=== PATIENT | female | born 1950 | race Native Hawaiian/Other Pacific Islander ===

== ENCOUNTER 2020-08-09 11:00 | Day surgery (SDC) | payer OTHER, MEDICARE ==
[2020-08-07 09:26] LABS: PLATELET COUNT 218 K/uL (152-353)
[2020-08-07 09:37] LABS: POTASSIUM 4.1 mmol/L (3.6-5.2)
== END 2020-08-10 15:28 | disposition home or self-care (01) ==
LOC: OR 11:00
PROVIDERS: ATTEND Internal Medicine Gastroenterology
PROC: 0DBL8ZZ Excision of Transverse Colon, Via Natural or Artificial Opening Endoscopic (ICD-10-PCS; principal; 2020-08-09)
DX: D12.3 Benign neoplasm of transverse colon (principal); K57.30 Diverticulosis of large intestine without perforation or abscess without bleeding; K64.8 Other hemorrhoids; K59.09 Other constipation; Z86.010 Personal history of colon polyps; Z12.11 Encounter for screening for malignant neoplasm of colon
CPT/HCPCS: 80053; 85027; J2704

== ENCOUNTER 2020-09-21 10:55 | Outpatient (CLI) | payer OTHER, MEDICARE | END 2020-09-21 19:05 | disposition home or self-care (01) | LOC: US 10:55 | PROVIDERS: ATTEND Internal Medicine Gastroenterology | DX: R10.11 Right upper quadrant pain (principal) ==

== ENCOUNTER 2020-11-01 09:42 | Day surgery (SDC) | payer OTHER, MEDICARE ==
[2020-10-26 10:58] LABS: POTASSIUM 4.4 mmol/L (3.6-5.2)
[2020-10-26 11:23] LABS: PLATELET COUNT 214 K/uL (152-353)
[~2020-11-01] VITALS: Ht 30.5 cm; Wt 0.5 kg
== END 2020-11-01 12:50 | disposition home or self-care (01) ==
LOC: OR 09:42
PROVIDERS: ATTEND Internal Medicine Gastroenterology
PROC: 0DB68ZZ Excision of Stomach, Via Natural or Artificial Opening Endoscopic (ICD-10-PCS; principal; 2020-11-01)
PROC: 0DB88ZZ Excision of Small Intestine, Via Natural or Artificial Opening Endoscopic (ICD-10-PCS; 2020-11-01)
DX: K29.50 Unspecified chronic gastritis without bleeding (principal); K21.00 Gastro-esophageal reflux disease with esophagitis, without bleeding; K44.9 Diaphragmatic hernia without obstruction or gangrene; R10.13 Epigastric pain; R10.11 Right upper quadrant pain; Z20.828 Contact with and (suspected) exposure to other viral communicable diseases
CPT/HCPCS: 80053; 85008; 85027; 87635; J2001; J2704; U0003

== ENCOUNTER 2020-11-03 12:52 | Outpatient (CLI) | payer OTHER, MEDICARE | END 2020-11-03 21:52 | disposition home or self-care (01) | LOC: MRI 12:52 | PROVIDERS: ATTEND Nurse Practitioner | DX: M54.12 Radiculopathy, cervical region (principal) ==

== ENCOUNTER 2021-05-14 13:04 | Emergency (ER) | payer OTHER, MEDICARE ==
[~2021-05-14] VITALS: Ht 152.4 cm; Wt 77.6 kg
[2021-05-14 13:10] VITALS: TEMP 100.3
[2021-05-14 14:38] LABS: POTASSIUM 3.5 mmol/L (3.6-5.2)
[2021-05-14 14:48] LABS: PLATELET COUNT 160 K/uL (152-353)
[2021-05-14 16:07] VITALS: BP 179/83
== END 2021-05-14 16:08 | disposition home or self-care (01) ==
LOC: ED 13:04
PROVIDERS: Emergency Medicine
DX: S00.83XA Contusion of other part of head, initial encounter (principal); S13.8XXA Sprain of joints and ligaments of other parts of neck, initial encounter; R50.9 Fever, unspecified; W10.8XXA Fall (on) (from) other stairs and steps, initial encounter; Y92.89 Other specified places as the place of occurrence of the external cause
CPT/HCPCS: 80048; 81000; 84484; 85027; 93005; 99283